=== PATIENT | female | born 1950 | race Caucasian/White ===

== ENCOUNTER 2024-02-10 12:15 | Emergency (ER) | payer MEDICARE, SELFPAY ==
[2024-02-10] MEDS ORDERED: Sodium Chloride 0.9% 1,000 ML ONE (12:54)
[2024-02-10 13:08] LABS: #Basophils 0.1 thou/uL (0.0-0.2); #Eosinphils 0.1 thou/uL (0.0-0.7); #Lymphocytes 1.6 thou/uL (1.20-3.40); #Monocytes 0.4 thou/uL (0.11-0.59); #Neutrophils 5.1 thou/uL (1.40-6.50); %Eosinophils 1.2 % (0.0-10.0); %Lymphocytes 21.8 % (21.0-51.0); %Monocytes 5.9 % (0.0-10.0); %Neutrophils 70.1 % (42.0-75.0); Hematocrit 45.2 % (36.0-47.0); Hemoglobin 15.1 g/dL (12.0-16.0); Mean Corpuscular HGB CONC 33.4 g/dL (32.0-36.0); Mean Corpuscular Hemoglobin 30.5 pg (27.0-31.0); Mean Corpuscular Volume 91.2 fl (78.0-98.0); Mean Platelet Volume 8.9 fL (7.4-10.4); Platelet Count 263 10x3/uL (130-400); RBC Distribution Width 12.1 % (11.5-14.5); Red Blood Cell (RBC) Count 4.96 mill/uL (4.20-5.40); White Blood Cell (WBC) Count 7.3 10x3/uL (4.8-10.8)
[2024-02-10 13:31] LABS: Bilirubin Small (Negative); Blood, Urine Negative (Negative); Glucose, Urine (Dipstick) Negative (Negative); Ketone, Urine Negative (Negative); Leukocyte Negative (Negative); Nitrite Negative (Negative); Protein, Urine (Dipstick) Negative (Neg-Trace); Specific Gravity, Urine 1.025 (1.005-1.030); Urobilinogen 0.2 mg/dL (Less than 2); pH, Urine 5.5 (5.0-9.0)
[2024-02-10 13:38] LABS: Clarity Hazy (Clear)
[2024-02-10 13:39] LABS: CAUTI Indications for Culture Alt mental st,lethar; Mucous/LPF 1+ LPF (<2+); Squamous Epithelial 0-3 HPF (0-3); WBC/HPF 0-3 HPF (0-3)
[2024-02-10 13:42] LABS: Urine Culture Reflex No No
[2024-02-10 13:42] LABS: ALT (SGPT) 16 U/L (8-55); AST (SGOT) 14 U/L (5-34); Albumin 3.9 g/dL (3.4-4.8); Alkaline Phosphatase 56 U/L (40-110); Anion Gap 17 mmol/L (10-20); BUN (Urea Nitrogen) 23 mg/dL (9.8-20.1); Bilirubin, Total 0.5 mg/dL (0.2-1.2); Calc. Creatinine Clearance 0 mL/min (70-130); Calcium 9.9 mg/dL (7.8-10.44); Carbon Dioxide 23 mmol/L (23-31); Chloride 103 mmol/L (98-107); Estimated GFR 47; Globulin 3.3 g/dL (2.4-3.5); Glucose 126 mg/dL (83-110); Potassium 4.4 mmol/L (3.5-5.1); Protein, Total 7.2 g/dL (5.8-8.1); Sodium 139 mmol/L (136-145)
[2024-02-10 13:43] LABS: Troponin I Less than 0.010 ng/mL (< 0.028)
== END 2024-02-10 14:33 | disposition home or self-care (01) ==
LOC: NAV ERS 12:15
DX: R55 Syncope and collapse (principal); T67.5XXA Heat exhaustion, unspecified, initial encounter; R03.0 Elevated blood-pressure reading, without diagnosis of hypertension; N28.9 Disorder of kidney and ureter, unspecified; I10 Essential (primary) hypertension
CPT/HCPCS: 80053; 81001; 84484; 85025; 93005; 96360; J7030